=== PATIENT | female | born 1980 | race Hispanic/Latino ===

== ENCOUNTER 2021-02-01 17:11 | Emergency (ER) | payer SELFPAY ==
--- OUTSIDE RECORDS SUMMARY | 2021-02-01 17:14 | XMS REPORT | Continuity of Care Document ---
:1980 Author Organization [facility] t Address 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 Medications Ordered Filled Start Stop Current Ordering Indication Dosage Frequency Signature Comments Components Source Medication Medication Date Date Medication? Clinician (SIG) Name Name Lisinopril Lisinopril Yes Maged [address] [facility] 11-13 [facility] - 00:00: Memoria 00 [facility] ent Clinics Sertraline Sertraline Yes Maged [address] [facility] HCl HCl 11-13 Susan [facility] - 00:00: Memoria 00 [facility] ent Clinics Procedures This patient has no known procedures. Encounters Start End Encounter Admission Attending Care Care Encounter Source Date/Time Date/Time Type Type Clinicians Facility Department ID 2018-11-13 2018-11-13 [place] [id number] [facility] 13:30:00 13:30:00 [facility] Medicine [facility] ent Clinics Results This patient has no known results.
[2021-02-01] MEDS ORDERED: TETANUS & DIPHTHERIA TOX,ADULT 0.5 ML VIAL ONE (17:56)
[2021-02-01] MEDS ORDERED: HYDROCODONE/APAP 7.5/325 MG TAB ONE (17:56)
[2021-02-01] MEDS ORDERED: LIDOCAINE 1% MPF 5 ML VIAL ONE (17:57)
--- NOTE | 2021-02-01 18:15 | ER ---
Nurse's Notes [facility] Name: Ila Harden Age: 40 yrs Sex: Female : 1980 Arrival Date: 02/01/2021 Time: 17:12 Bed 15 Private MD: Diagnosis: Laceration without foreign body of left hand Presentation: 02/01 17:17 Chief complaint: Patient states: left palm laceration with a knife while cutting an sv avocado. Coronavirus screen: Client denies travel out of the [place] in the last 14 days. At this time, the client does not indicate any symptoms associated with coronavirus-19. Ebola Screen: No symptoms or risks identified at this time. Complicating Factors: There are no complicating factors for this patient. Initial Sepsis Screen: Does the patient meet any 2 criteria? No. Patient's initial sepsis screen is negative. Does the patient have a suspected source of infection? No. Patient's initial sepsis screen is negative. Risk Assessment: Do you want to hurt yourself or someone else? Patient reports no desire to harm self or others. Onset of symptoms was February 01, 2021. 17:17 Method Of Arrival: Ambulatory sv 17:17 Acuity: CARON 3 sv Historical: - Allergies: 17:19 No Known Allergies; sv - PMHx: 17:19 None; sv - PSHx: 17:19 None; sv - Immunization history:: Client reports receiving the 2nd dose of the Covid vaccine, Client reports receiving the 1st dose of the Covid vaccine, Last tetanus immunization: < 10 years ago. - Social history:: Smoking status: Patient denies any tobacco usage or history of. Screenin:25 Abuse screen: Denies threats or abuse. Denies injuries from another. Nutritional tr6 screening: No deficits noted. Tuberculosis screening: No symptoms or risk factors identified. Fall Risk None identified. Assessment: 18:24 General: Appears uncomfortable, Behavior is calm, cooperative, appropriate for age. tr6 Pain: Complains of pain in left hand. Neuro: No deficits noted. Cardiovascular: No deficits noted. Respiratory: No deficits noted. GI: No deficits noted. : No deficits noted. EENT: No deficits noted. Derm: No deficits noted. Musculoskeletal: No deficits noted. Injury Description: Laceration is clean. Vital Signs: 17:17 BP 148 / 109; Pulse 86; Resp 14; Temp 98; Pulse Ox 97% ; Weight 89.36 kg; Height 4 ft. sv 1 in. (124.46 cm); 17:17 Body Mass Index 57.69 (89.36 kg, 124.46 cm) sv ED Course: 17:12 Patient arrived in ED. mr 17:17 Saida Reyna FNP-C [facility] kb 17:17 Dipesh Capps MD is Attending Physician. kb 17:18 Triage completed. sv 17:19 Arm band placed on. sv 17:31 Kimberley Tenorio, JOSHUA is Primary Nurse. tr6 18:25 Patient has correct armband on for positive identification. Bed in low position. Call tr6 light in reach. Side rails up X 1. Door closed. Noise minimized. Visitors limited. Lights dimmed. 18:25 No provider procedures requiring assistance completed. Patient did not have IV access tr6 during this emergency room visit. Administered Medications: 17:43 Drug: Tetanus-Diphtheria Toxoid Adult 0.5 ml {Knuckler: Musement. Exp: tr6 09/29/2022. Lot #: [id number]. } Route: IM; Site: right deltoid; 17:43 Drug: [place] (HYDROcodone-acetaminophen) (7.5 mg-325 mg) 1 tabs Route: PO; tr6 18:17 Drug: Lidocaine (1 %) 1 vials {Note: given by BECKI Reyna.} Volume: 5 ml; Route: tr6 Infiltration; Outcome: 18:14 Discharge ordered by . kb 18:25 Discharged to home ambulatory. tr6 18:25 Condition: good 18:25 Discharge instructions given to patient, family, Instructed on discharge instructions, follow up and referral plans. safety practices, Demonstrated understanding of instructions, follow-up care. 19:00 Patient left the ED. tr6 Signatures: Saida Reyna FNP-C FNP-Ckb Verde, Stephanie, RN RN [place] mr Kimberley Tenorio, JOSHUA RN tr6
--- NOTE | 2021-02-01 18:15 | EDPHYS ---
Physician Documentation [facility] Name: Ila Harden Age: 40 yrs Sex: Female : 1980 Arrival Date: 02/01/2021 Time: 17:12 Bed 15 Private MD: ED Physician Dipesh Capps HPI: 02/01 17:38 This 40 yrs old Female presents to ER via Ambulatory with complaints of kb Laceration To Hand. 17:38 The patient has a laceration related to: cooking, from a knife, occurred at home, and kb there are no complicating factors. The injury was accidental. The laceration(s) is(are) located on the palm of left hand. Onset: The symptoms/episode began/occurred just prior to arrival. Associated signs and symptoms: The patient has no apparent associated signs or symptoms. The patient has not experienced similar symptoms in the past. The patient has not recently seen a physician. Historical: - Allergies: 17:19 No Known Allergies; sv - PMHx: 17:19 None; sv - PSHx: 17:19 None; sv - Immunization history:: Client reports receiving the 2nd dose of the Covid vaccine, Client reports receiving the 1st dose of the Covid vaccine, Last tetanus immunization: < 10 years ago. - Social history:: Smoking status: Patient denies any tobacco usage or history of. ROS: 17:37 Constitutional: Negative for fever, chills, and weight loss, Abdomen/GI: Negative for kb abdominal pain, nausea, vomiting, diarrhea, and constipation, MS/Extremity: Negative for injury and deformity, Neuro: Negative for headache, weakness, numbness, tingling, and seizure. 17:37 Skin: Positive for laceration(s), of the palm of left hand. Exam: 17:38 Constitutional: This is a well developed, well nourished patient who is awake, alert, kb and in no acute distress. Head/Face: Normocephalic, atraumatic. ENT: Moist Mucous membranes Respiratory: Respirations even and unlabored. No increased work of breathing, no retractions or nasal flaring. MS/ Extremity: Pulses equal, no cyanosis. Neurovascular intact. Full, normal range of motion. Neuro: Awake and alert, GCS 15, oriented to person, place, time, and situation. Moves all extremities. Normal gait. Psych: Awake, alert, with orientation to person, place and time. Behavior, mood, and affect are within normal limits. 17:38 Skin: injury, laceration(s), the wound is approximately 2 cm(s), of the palm of left hand, that can be described as clean, no foreign body, linear, without bleeding. Vital Signs: 17:17 BP 148 / 109; Pulse 86; Resp 14; Temp 98; Pulse Ox 97% ; Weight 89.36 kg; Height 4 ft. sv 1 in. (124.46 cm); 17:17 Body Mass Index 57.69 (89.36 kg, 124.46 cm) sv Laceration: 18:13 Wound Repair of 2cm ( 0.8in ) subcutaneous laceration to palm of left hand. Linear kb shaped.. Distal neuro/vascular/tendon intact. Anesthesia: Wound infiltrated with 3 mls of 1% lidocaine. Wound prep: Extensive cleansing with hibiclenz by me, Wound irrigation with saline by me. Skin closed with 3 4-0 Prolene using simple sutures and sterile technique. Dressed with Neosporin. Patient tolerated well. MDM: 17:17 Patient medically screened. kb 17:37 Data reviewed: vital signs, nurses notes. Data interpreted: Pulse oximetry: on room air kb is 97 %. Interpretation: normal. Counseling: I had a detailed discussion with the patient and/or guardian regarding: the historical points, exam findings, and any diagnostic results supporting the discharge/admit diagnosis, the need for outpatient follow up, a family practitioner, to return to the emergency department if symptoms worsen or persist or if there are any questions or concerns that arise at home. 02/01 17:21 Order name: Setup Suture Tray; Complete Time: 17:49 kb Administered Medications: 17:43 Drug: Tetanus-Diphtheria Toxoid Adult 0.5 ml {Speech Assistant: Ohmx. Exp: tr6 09/29/2022. Lot #: [id number]. } Route: IM; Site: right deltoid; 17:43 Drug: [place] (HYDROcodone-acetaminophen) (7.5 mg-325 mg) 1 tabs Route: PO; tr6 18:17 Drug: Lidocaine (1 %) 1 vials {Note: given by BECKI Reyna.} Volume: 5 ml; Route: tr6 Infiltration; Disposition Summary: 02/01/21 18:14 Discharge Ordered Location: Home kb Condition: Stable kb Diagnosis - Laceration without foreign body of left hand kb Followup: kb - With: Emergency Department - When: As needed - Reason: Worsening of condition Followup: kb - With: Private Physician - When: 2 - 3 days - Reason: Recheck today's complaints, Continuance of care, Re-evaluation by your physician Discharge Instructions: - Discharge Summary Sheet kb - Laceration Care, Adult, [id number] kb Forms: - Medication Reconciliation Form kb - Thank You Letter kb - Antibiotic Education kb - Prescription Opioid Use kb Addendum: 02/05/2021 07:30 Co-signature as Attending Physician, Dipesh Capps MD. r n Signatures: Saida Reyna, SUPERCHARGER REPAIR SUPERVISOR-C SUPERCHARGER REPAIR SUPERVISOR-Sugey Jc, Dipesh Mccarty RN, MD MD rn Ramnanan, Tiffany, RN RN tr6
[2021-02-01 19:28] VITALS: BP 148/109; TEMP 98; O2SAT 97
== END 2021-02-01 19:00 | disposition home or self-care (01) ==
LOC: ER 17:11
PROC: 0JQK0ZZ Repair Left Hand Subcutaneous Tissue and Fascia, Open Approach (ICD-10-PCS; principal; 2021-02-01)
DX: S61.412A Laceration without foreign body of left hand, initial encounter (principal); W26.0XXA Contact with knife, initial encounter; Y93.G3 Activity, cooking and baking; Y92.009 Unspecified place in unspecified non-institutional (private) residence as the place of occurrence of the external cause; Z23 Encounter for immunization
CPT/HCPCS: 90471; 90714; 99283